=== PATIENT | female | born 1990 | race Caucasian/White ===

== ENCOUNTER 2018-04-28 19:01 | Emergency (ER) | payer SELFPAY ==
[~2018-04-28] VITALS: Ht 154.9 cm; Wt 62.6 kg
[~2018-04-28 19:01] MED LIST: ACHD5005 PO; AZIT-21 PO; BENZ56AE TP; CEPH500C PO; CITA20TA12 PO; CODE-54 PO; DCS100C PO; FRS325T; FRS325T PO; HYDR-700 PO; IBP600T1 PO; IBUP-1773 PO; NITR100C3 PO; OXYC-12 PO; PREN1TAB39
--- NOTE | 2018-04-28 19:46 | ED GU-Female ---
General Chief Complaint: -Female Stated Complaint: 6WEEKS, VAGINAL BLEEDING Nursing Triage Note: PT STATES SHE BELIEVES SHE IS 7 WEEKS . PT STATES SHE WOKE UP FROM [place] TODAY AND BEGAN HAVING SHARP PAINS IN HER BACK THAT RADIATED TO BOTH SIDES, THEN PT STARTED BLEEDING. PT STATES BLOOD WAS BRIGHT RED TURNING TO DARK BROWN. PT STATES SHE IS NOT SOAKING THROUGH PADS AND THE BLEEDING HAS SLOWED AT THIS TIME. PT IS 6 PARA 6. Nursing Sepsis Screen: No Definite Risk Source: patient Exam Limitations: no limitations History of Present Illness Date Seen by Provider: Apr 28, 2018 Time Seen by Provider: 19:15 Initial Comments PT ARRIVES VIA POV FROM HOME STATES SHE IS 6 WEEKS --LMP 03/15/18. NORMAL. NO CONTROL. HAD + HOME TEST YESTERDAY NO OB CARE --PLANS ON SEEING DR. ROBERTSON AGAIN, HAS NOT ATTEMPTED TO MAKE APPOINTMENT WITH HER PT STATES SHE WOKE UP AT 1300 TODAY AND "HAD SHARP PAINS IN MY LOW BACK AND SIDES" AND WHEN SHE WENT TO THE BATHROOM, HAD BRIGHT RED BLOOD ON TISSUE WITH WIPING, HAS NOT USED ANY PADS, AND HAS HAD A SPOT OF BROWN WITH WIPING SINCE THEN, AND NO BLEEDING OR SPOTTING NOW NO PAIN NOW, ONLY LASTED A COUPLE OF MINUTES NO PROBLEMS URINATING NO FEVER NO NAUSEA /VOMITING AB 0. Allergies and Home Medications Allergies Coded Allergies: Penicillins (Unverified Allergy, Unknown, 10/22/14) Sulfa (Sulfonamide Antibiotics) (Verified Allergy, Unknown, 07/29/09) Home Medications Citalopram Hydrobromide 20 Mg Tablet, 20 MG PO DAILY, (Reported) Ferrous Sulfate 325 Mg Tab, 325 MG PO DAILY@08 Prescribed by: KERRY FIGUEROA on 02/15/15 1022 Hydrocodone Bit/Acetaminophen 1 Each Tablet, 1-2 TAB PO Q4H PRN for PAIN Prescribed by: SHERINE ROBERTSON on 04/28/16 0842 Ibuprofen 600 Mg Tablet, 600 MG PO Q6H Prescribed by: SHERINE ROBERTSON on 04/28/16 0842 Patient Home Medication List Home Medication List Reviewed: Yes Review of Systems Constitutional: no symptoms reported Respiratory: no symptoms reported Cardiovascular: no symptoms reported Gastrointestinal: see HPI Genitourinary: see HPI : Yes LMP: March 15, 2018 Musculoskeletal: see HPI Skin: no symptoms reported Psychiatric/Neurological: No Symptoms Reported Endocrine: No Symptoms Reported Hematologic/Lymphatic: No Symptoms Reported Past Bgxdrkv-Mbjuxq-Xldmun Hx Patient Social History Alcohol Use: Occasionally Uses Recreational Drug Use: No (PT DENIES BUT TESTED + FOR THC ON 04/28/18) Smoking Status: Never a Smoker Recent Foreign Travel: No Contact w/Someone Who Travel: No Recent Infectious Disease Expo: No Recent Hopitalizations: No (previous 2006) Physical Abuse: No Sexual Abuse: No Immunizations Up To Date Tetanus Booster (TDap): Less than 5yrs PED Vaccines UTD: Yes Past Medical History Surgeries: Yes ( X 1) Section Respiratory: No Cardiac: No Neurological: No : Yes Last Menstrual Period: March 15, 2018 Hx : 7 Hx Para: 6 ( X 1 WITH CHILD #5 FOR BREECH, FOLLOWED BY WITH #6) Hx Total # of Abortions (Sp): 0 Reproductive Disorders: No Female Reproductive Disorders: Denies Sexually Transmitted Disease: No HIV/AIDS: No Genitourinary: No Gastrointestinal: No Musculoskeletal: No Endocrine: No HEENT: No Cancer: No Psychosocial: No Nursing Suicide Risk Score: 0 Integumentary: Yes Eczema Blood Disorders: No Adverse Reaction/Blood Tranf: No Family Medical History Arthritis 19 MOTHER Asthma G8 BROTHER Neoplasm 19 MOTHER (LIVER CANCER) No Family History of: AIDS Abdominal aortic aneurysm [place]'s disease Alcoholism Alzheimer's disease Aphasia Cancer of mouth Cardiovascular disease Cataracts Colon cancer Completed stroke Congenital disease Congenital heart disease Coronary thrombosis Cystic fibrosis Deafness or hearing loss Dementia Diabetes mellitus Drug abuse Dysphasia Fibrocystic disease of breast Gastroenteritis Glaucoma Headache disorder Hypercholesterolemia Hypertension Infertility Kidney disease Myocardial infarction Not obtainable due to adoption Osteoporosis Parkinson's disease Prostate cancer Psychosocial problem Respiratory disorder Seizure disorder Severe allergy Thyroid disease Tuberculosis Visual disorder Cancer Physical Exam Vital Signs Vital Signs - First Documented 04/28/18 19:05 Temp 97.6 Pulse 105 Resp 14 B/P (MAP) 116/69 (85) O2 Delivery Room Air Capillary Refill : Less Than 3 Seconds General Appearance: WD/WN, other (SITTING FINNISH-STYLE, TEXTING ON PHONE, WALKS UPRIGHT AND MOVES WITHOUT DIFFICULTY. DOES NOT APPEAR TO BE IN ANY DISCOMFORT) Cardiovascular: regular rate, rhythm, no murmur Respiratory: normal breath sounds, no respiratory distress, no accessory muscle use Gastrointestinal: normal bowel sounds, non tender, soft Back: normal inspection Extremities: normal inspection, no pedal edema, normal capillary refill Neurologic/Psychiatric: project lead II-XII nml as tested, no motor/sensory deficits, alert, normal mood/affect, oriented x 3 Skin: normal color, warm/dry, tattoos/piercings Progress/Results/Core Measures Suspected Sepsis Recent Fever Within 48 Hours: No Infection Criteria Present: None New/Unexplained Altered Menta: No Sepsis Screen: No Definite Risk SIRS Temperature:97.6 Pulse: 105 Respiratory Rate: 14 Laboratory Tests 04/28/18 19:47: White Blood Count 8.5 Blood Pressure 116 /69 Mean: 85 Laboratory Tests 04/28/18 19:47: Creatinine 0.64, Platelet Count 334 Results/Orders Lab Results Laboratory Tests Test 04/28/18 19:14 04/28/18 19:47 04/28/18 19:55 Range/Units Urine Color YELLOW YELLOW Urine Clarity CLEAR CLEAR Urine pH 6 7 5-9 Urine Specific [place] 1.015 L 1.010 L 1.016-1.022 Urine Protein 2+ H 1+ H NEGATIVE Urine Glucose (UA) NEGATIVE NEGATIVE NEGATIVE Urine Ketones NEGATIVE NEGATIVE NEGATIVE Urine Nitrite NEGATIVE NEGATIVE NEGATIVE Urine Bilirubin NEGATIVE NEGATIVE NEGATIVE Urine Urobilinogen NORMAL 1 NORMAL MG/DL Urine Leukocyte Esterase 1+ H 1+ H NEGATIVE Urine RBC (Auto) 4+ H 2+ H NEGATIVE Urine RBC 5-10 H 5-10 H /HPF Urine WBC 0-2 0-2 /HPF Urine Squamous Epithelial Cells 5-10 RARE /HPF Urine Crystals NONE NONE /LPF Urine Bacteria FEW H NONE /HPF Urine Casts NONE NONE /LPF Urine Mucus MODERATE H MODERATE H /LPF Urine Culture Indicated NO NO Urine Opiates Screen NEGATIVE NEGATIVE Urine Oxycodone Screen NEGATIVE NEGATIVE Urine Methadone Screen NEGATIVE NEGATIVE Urine Propoxyphene Screen NEGATIVE NEGATIVE Urine Barbiturates Screen NEGATIVE NEGATIVE Ur Tricyclic Antidepressants Screen NEGATIVE NEGATIVE Urine Phencyclidine Screen NEGATIVE NEGATIVE Urine Amphetamines Screen NEGATIVE NEGATIVE Urine Methamphetamines Screen NEGATIVE NEGATIVE Urine Benzodiazepines Screen NEGATIVE NEGATIVE Urine Cocaine Screen NEGATIVE NEGATIVE Urine Cannabinoids Screen POSITIVE H NEGATIVE White Blood Count 8.5 4.3-11.0 10^3/uL Red Blood Count 4.10 L 4.35-5.85 10^6/uL Hemoglobin 10.8 L 11.5-16.0 G/DL Hematocrit 33 L 35-52 % Mean Corpuscular Volume 79 L 80-99 FL Mean Corpuscular Hemoglobin 26 25-34 PG Mean Corpuscular Hemoglobin Concent 33 32-36 G/DL Red Cell Distribution Width 16.7 H 10.0-14.5 % Platelet Count 334 130-400 10^3/uL Mean Platelet Volume 9.5 7.4-10.4 FL Neutrophils (%) (Auto) 63 42-75 % Lymphocytes (%) (Auto) 30 12-44 % Monocytes (%) (Auto) 7 0-12 % Eosinophils (%) (Auto) 0 0-10 % Basophils (%) (Auto) 0 0-10 % Neutrophils # (Auto) 5.3 1.8-7.8 X 10^3 Lymphocytes # (Auto) 2.5 1.0-4.0 X 10^3 Monocytes # (Auto) 0.6 0.0-1.0 X 10^3 Eosinophils # (Auto) 0.0 0.0-0.3 10^3/uL Basophils # (Auto) 0.0 0.0-0.1 10^3/uL Sodium Level 138 135-145 MMOL/L Potassium Level 3.2 L 3.6-5.0 MMOL/L Chloride Level 107 98-107 MMOL/L Carbon Dioxide Level 23 21-32 MMOL/L Anion Gap 8 5-14 MMOL/L Blood Urea Nitrogen 9 7-18 MG/DL Creatinine 0.64 0.60-1.30 MG/DL Estimat Glomerular Filtration Rate > 60 BUN/Creatinine Ratio 14 Glucose Level 88 70-105 MG/DL Calcium Level 9.3 8.5-10.1 MG/DL Human Chorionic Gonadotropin, Quant [id number] H <5 MIU/ML My Orders Orders - ADY TEJADA DO Abo Rh Type (04/28/18 19:14) Basic Metabolic Panel (04/28/18 19:14) Cbc With Automated Diff (04/28/18 19:14) Hcg,Quantitative (04/28/18 19:14) Drug Screen Stat (Urine) (04/28/18 19:43) Ua Culture If Indicated (04/28/18 19:43) Us Ob Transvaginal [id number] (04/28/18 19:14) Ua Culture If Indicated (04/28/18 20:12) Vital Signs/I&O 04/28/18 19:05 Temp 97.6 Pulse 105 Resp 14 B/P (MAP) 116/69 (85) O2 Delivery Room Air Capillary Refill : Less Than 3 Seconds Blood Pressure Mean: 85 Progress Note : Progress Note NO PAIN OR BLEEDING OR ANY SYMPTOMS DURING ER STAY BLOOD TYPE A+ PT STATES SHE IS HERE FOR PROOF OF SO SHE CAN TAKE TO WIC/MEDICAID TO GET ASSISTANCE Diagnostic Imaging Comments ULTRASOUND--6 WEEK INTRAUTERINE GESTATIONAL SAC, NO POLE SEEN, 2 CM RIGHT OVARIAN CYST--PER TECH REPORT @ 1942, AND PER RADIOLOGIST REPORT @ @2004 Reviewed: Reviewed by Me Departure Impression Primary Impression: Threatened in first trimester Additional Impression: Urinary tract infection Disposition: HOME, SELF-CARE Condition: Stable Departure-Patient Inst. Referrals: SHERINE ROBERTSON DO (PCP/Family) Primary Care Physician Patient Instructions: How to Plan and Prepare for a Healthy , Threatened Miscarriage (DC), Urinary Tract Infection, Adult (DC) Add. Discharge Instructions: NOTHING IN VAGINA--NO TAMPONS, DOUCHING OR INTERCOURSE TYLENOL NEEDED FOR PAIN LOTS OF FLUIDS TAKE VITAMINS DAILY FOLLOW UP WITH OB DR. OF CHOICE SOON POSSIBLE RETURN TO ER IF WORSE All discharge instructions reviewed with patient and/or family. Voiced understanding. Scripts Nitrofurantoin Monohyd/M-Cryst (Macrobid 100 mg Capsule) 100 Mg Capsule 100 MG PO BID, #20 CAP Prov: ADY TEJADA DO 04/28/18 ADY TEJADA DO Apr 28, 2018 19:46
[2018-04-28 19:55] LABS: BASOPHILS % (AUTO) 0 % (0-10); EOSINOPHILS % (AUTO) 0 % (0-10); HEMATOCRIT 33 % (35-52); HEMOGLOBIN 10.8 G/DL (11.5-16.0); LYMPHOCYTES # (AUTO) 2.5 X 10^3 (1.0-4.0); LYMPHOCYTES % (AUTO) 30 % (12-44); MEAN CORPUSCULAR HEMOGLOBIN 26 PG (25-34); MEAN CORPUSCULAR HGB CONC 33 G/DL (32-36); MEAN CORPUSCULAR VOLUME 79 FL (80-99); MEAN PLATELET VOLUME 9.5 FL (7.4-10.4); MONOCYTES # (AUTO) 0.6 X 10^3 (0.0-1.0); MONOCYTES % (AUTO) 7 % (0-12); NEUTROPHILS # (AUTO) 5.3 X 10^3 (1.8-7.8); NEUTROPHILS % (AUTO) 63 % (42-75); PLATELET COUNT 334 10^3/uL (130-400); RED CELL DISTRIBUTION WIDTH 16.7 % (10.0-14.5); WHITE BLOOD COUNT 8.5 10^3/uL (4.3-11.0)
[2018-04-28 19:56] LABS: BILIRUBIN,URINE NEGATIVE (NEGATIVE); CLARITY,URINE CLEAR; COLOR,URINE YELLOW; GLUCOSE, URINE (UA) NEGATIVE (NEGATIVE); KETONES,URINE NEGATIVE (NEGATIVE); LEUKOCYTE ESTERASE ,URINE 1+ (NEGATIVE); NITRITE,URINE NEGATIVE (NEGATIVE); PH,URINE 6 (5-9); PROTEIN,URINE 2+ (NEGATIVE); UROBILINOGEN,URINE NORMAL (NORMAL)
--- NOTE | 2018-04-28 19:56 | Diagnostic Imaging Report ---
PROCEDURE: US OB transvaginal, [id number]. TECHNIQUE: Transabdominal and transvaginal grayscale, color Doppler and pulse duplex imaging of the pelvis was performed. INDICATION: Vaginal bleeding and pelvic pain. FINDINGS: There is a anechoic gestational sac present within the endometrial canal of the uterus. The gestational sac has a mean diameter of 1.23 cm which results in an estimated gestational age of 6 weeks and 0 days. A yolk sac is present; however, no embryo is identified at this time. Within the right ovary there is a thickwalled corpus luteum cyst present. Blood flow is present in the right ovary by color Doppler imaging. The left ovary is not seen. No free pelvic fluid. IMPRESSION: 1. Intrauterine gestational sac is present. Based on mean sac diameter, the estimated gestational age is 6 weeks and 0 days. Advise followup beta-hCG and repeat ultrasound as deemed clinically warranted. 2. Right ovarian corpus luteal cyst. Dictated by: Dictated on workstation # [id number]
[2018-04-28 20:01] LABS: AMPHETAMINE SCREEN, URINE NEGATIVE (NEGATIVE); BARBITURATE SCREEN URINE NEGATIVE (NEGATIVE); BENZODIAZEPINES SCREEN URINE NEGATIVE (NEGATIVE); CANNABINOID SCREEN, URINE POSITIVE (NEGATIVE); COCAINE SCREEN URINE NEGATIVE (NEGATIVE); METHADONE STAT NEGATIVE (NEGATIVE); METHAMPHETAMINE SCREEN URINE S NEGATIVE (NEGATIVE); OPIATE SCREEN URINE NEGATIVE (NEGATIVE); OXYCODONE STAT NEGATIVE (NEGATIVE); PROPOXYPHENE STAT NEGATIVE (NEGATIVE); TRICYCLIC ANTIDEPRESSANTS SCRE NEGATIVE (NEGATIVE)
[2018-04-28 20:06] LABS: BACTERIA,URINE FEW /HPF; WBC,URINE 0-2 /HPF
[2018-04-28 20:16] LABS: BUN/CREATININE RATIO 14; CALCIUM 9.3 MG/DL (8.5-10.1); CARBON DIOXIDE 23 MMOL/L (21-32); CHLORIDE 107 MMOL/L (98-107); CREATININE SERUM 0.64 MG/DL (0.60-1.30); GFR ESTIMATED > 60; GLUCOSE 88 MG/DL (70-105); POTASSIUM 3.2 MMOL/L (3.6-5.0); SODIUM 138 MMOL/L (135-145)
[2018-04-28 20:43] LABS: BILIRUBIN,URINE NEGATIVE (NEGATIVE); CLARITY,URINE CLEAR; COLOR,URINE YELLOW; GLUCOSE, URINE (UA) NEGATIVE (NEGATIVE); KETONES,URINE NEGATIVE (NEGATIVE); LEUKOCYTE ESTERASE ,URINE 1+ (NEGATIVE); NITRITE,URINE NEGATIVE (NEGATIVE); PH,URINE 7 (5-9); PROTEIN,URINE 1+ (NEGATIVE); UROBILINOGEN,URINE 1 MG/DL (NORMAL)
[2018-04-28 20:50] LABS: SQUAMOUS EPITHELIAL CELL,UR RARE /HPF; WBC,URINE 0-2 /HPF
[2018-04-28] MEDS ORDERED: NITR-65 PO (20:57)
[2018-04-28 21:08] VITALS: BP 106/76
== END 2018-04-28 21:08 | disposition home or self-care (01) ==
LOC: EDUNIT# 19:01 → ER 19:03
DX: O20.0 Threatened abortion (principal); O23.41 Unspecified infection of urinary tract in pregnancy, first trimester; O99.321 Drug use complicating pregnancy, first trimester; F12.90 Cannabis use, unspecified, uncomplicated; Z87.59 Personal history of other complications of pregnancy, childbirth and the puerperium; Z87.2 Personal history of diseases of the skin and subcutaneous tissue; Z88.0 Allergy status to penicillin; Z88.2 Allergy status to sulfonamides; Z3A.01 Less than 8 weeks gestation of pregnancy
CPT/HCPCS: 36415; 76817; 80048; 80306; 81000; 84702; 85025; 87088; 99283

== ENCOUNTER 2018-11-30 14:29 | Outpatient (CLI) | payer MEDICAID ==
[~2018-11-30] VITALS: Ht 154.9 cm; Wt 79.4 kg
[~2018-11-30 14:29] MED LIST changes: +NITR-65 PO
[2018-11-30 14:36] VITALS: BP 124/74
[2018-11-30] MEDS ORDERED: FERR325T18 PO (14:59)
[2018-11-30] MEDS ORDERED: PREN-8 PO (14:59)
== END 2018-11-30 14:50 | disposition home or self-care (01) ==
LOC: PREOP 14:29
PROVIDERS: ATTEND Obstetrics & Gynecology
DX: Z01.818 Encounter for other preprocedural examination (principal)
CPT/HCPCS: 87081

== ENCOUNTER 2018-12-09 04:32 | Inpatient (IN) | payer MEDICAID, OTHER ==
[~2018-12-09] VITALS: Ht 154.9 cm; Wt 84.4 kg
[~2018-12-09 04:32] MED LIST changes: +CITRIC ACID/SOB CIT (BICITRA) 30 ML UDC ONE; +FAMOTIDINE 20MG/2ML IV (PEPCID) ONE; +FERR325T18 PO; +METOCLOPRAMIDE INJ 10 MG/2 ML (REGLAN) ONE; +PREN-8 PO
--- NOTE | 2018-12-09 06:45 | NUR ---
CRUZITO CADENA presented to unit via ambulation from home, accompanied by family, with c/o PREVIOUS SECTION. CRUZITO CADENA weighed, gowned, voided, and to bed. EFHM and TOCO applied, VS taken. CRUZITO CADENA oriented to bed controls, call light, TV, heat, and A/C controls.
[2018-12-09] MEDS ORDERED: BUPIVACAINE SPINAL 0.75% (SENSORCAINE) 2 ML AMP ONE (07:09)
[2018-12-09] MEDS ORDERED: OXYTOCIN (PITOCIN) 10 UNIT/ML VIAL ONE (07:09)
[2018-12-09] MEDS ORDERED: ONDANSETRON 4 MG/2 ML (SDV) Z0FRAN ONE (07:09)
[2018-12-09] MEDS ORDERED: DEXAMETHASONE 10 MG/ML (DECADRON) 1 ML VIAL ONE (07:09)
[2018-12-09] MEDS ORDERED: fentaNYL INJECTION 100 MCG/2 ML AMP ONE (07:09)
[2018-12-09] MEDS ORDERED: ceFAZolin INJECTION 1,000 MG in NS (IVPB) 50 ML IV ONE (07:15)
[2018-12-09] MEDS ORDERED: ceFAZolin INJECTION 1,000 MG ONE (07:18)
--- NOTE | 2018-12-09 07:18 | Progress Note-Pre Operative ---
Pre-Operative Progress Note H&P Reviewed The H&P was reviewed, patient examined and no changes noted. Date Seen by Provider: Dec 09, 2018 Time Seen by Provider: 07:00 Date H&P Reviewed: Dec 09, 2018 Time H&P Reviewed: 07:00 Pre-Operative Diagnosis: previous cesaeran section SHERINE ROBERTSON DO Dec 09, 2018 07:18
[2018-12-09 07:20] VITALS: BP 127/94
[2018-12-09] MEDS: LACTATED RINGERS 1,000 ML IV PRN ×2 (07:20→07:55)
[2018-12-09 07:21] LABS: BASOPHILS % (AUTO) 0 % (0-10); EOSINOPHILS % (AUTO) 0 % (0-10); HEMATOCRIT 30 % (35-52); HEMOGLOBIN 9.6 G/DL (11.5-16.0); LYMPHOCYTES # (AUTO) 1.8 X 10^3 (1.0-4.0); LYMPHOCYTES % (AUTO) 22 % (12-44); MEAN CORPUSCULAR HEMOGLOBIN 25 PG (25-34); MEAN CORPUSCULAR HGB CONC 32 G/DL (32-36); MEAN CORPUSCULAR VOLUME 79 FL (80-99); MONOCYTES # (AUTO) 0.8 X 10^3 (0.0-1.0); MONOCYTES % (AUTO) 10 % (0-12); NEUTROPHILS # (AUTO) 5.3 X 10^3 (1.8-7.8); NEUTROPHILS % (AUTO) 67 % (42-75); PLATELET COUNT 240 10^3/uL (130-400); RED CELL DISTRIBUTION WIDTH 19.2 % (10.0-14.5)
[2018-12-09] MEDS ORDERED: CITRIC ACID/SOB CIT (BICITRA) 30 ML UDC PO ONE (07:30)
[2018-12-09] MEDS ORDERED: FAMOTIDINE 20MG/2ML IV (PEPCID) IV ONE (07:30)
[2018-12-09] MEDS ORDERED: METOCLOPRAMIDE INJ 10 MG/2 ML (REGLAN) IV ONE (07:30)
[2018-12-09] MEDS: WATER (STERILE) FOR INJECTION 10 ML ONE ×2 (07:43→07:46)
[2018-12-09] MEDS ORDERED: LIDOCAINE PF 2% 5 ML (XYLOCAINE) VIAL ONE (08:18)
[2018-12-09] MEDS ORDERED: BUPIVACAINE 0.5% 30 ML (SENSORCAINE) VIAL ONE (08:19)
[2018-12-09] MEDS: KETOROLAC 30 MG/ML VIAL IVP SCH ×3 (08:30→23:40)
[2018-12-09] MEDS ORDERED: KETOROLAC 30 MG/ML VIAL ONE (08:32)
[2018-12-09] MEDS ORDERED: D5 LR IV SOLUTION 1,000 ML IV SCH (08:53)
[2018-12-09] MEDS ORDERED: OXYTOCIN/NORMAL SALINE 500 ML IV SCH (08:53)
[2018-12-09] MEDS ORDERED: diphenhydrAMINE 50 MG/ML INJ (BENADRYL) IV PRN (09:00)
[2018-12-09] MEDS ORDERED: NALOXONE 0.4 MG/ML 1 ML (NARCAN) VIAL IV PRN (09:00)
[2018-12-09] MEDS ORDERED: ONDANSETRON 4 MG/2 ML (SDV) Z0FRAN IV PRN (09:00)
[2018-12-09] MEDS ORDERED: TETANUS,DIPTH,PERTUSS P/F (BOOSTRIX) 0.5 ML VIAL IM SCH (09:00)
[2018-12-09] MEDS ORDERED: MEASLES,MUMPS,RUBELLA 1 EA INJ SC SCH (09:00)
[2018-12-09] MEDS ORDERED: HYDROmorphone 2 MG/ML VIAL (DILAUDID) IV PRN (09:00)
--- NOTE | 2018-12-09 09:15 | Cesarean Section Operative ---
Procedure Procedure Note Pre-operative Diagnosis: Rosa Isela Michelle is a 28 /Para 04/4115 , Gestational Age 38 1/7 weeks, contractions advanced dilation, early labor Post-operative Diagnosis: same Procedure: Repeat low transverse section Physician: SHERINE ROBERTSON Vice President Of Brand Management: SORAIDA Estimated blood loss: 900 mL Disposition: stable Findings: Viable male infant, Apgars pending, weight pending, intact placenta, 3vc, normal appearing uterus, tubes, and ovaries. Indications:Rosa Isela Michelle is a 28 /Para 04/4115 ,Gestational Age 38 1/7 weeks, contractions advanced dilation, early labor, breech, nuchal and body cord, meconium Patient had moved to during due to social situation. There was a lapse in PNV but resumed the last few weeks. She has had an uncomplicated but with cs at 36 weeks due to ROM we were cautious. She was complaining of pressure and was having irregular contractions. SVE was 4/90/-1 vertex and intact. She was rescheduled for CS today. There was no anatomy scan during this due to lapse in PNC and late presentation. Do have a late dating scan. She is GBS negative. On arrival today there is a level I tracing but she is having irregular contractions. On evaluation, fetus is noted to be breech and was cephalic in the office yesterday. Procedure Details: The patient was seen in pre-op and the procedure was discussed with the patient in full, including the risks, benefits, and alternatives. All questions were answered. The patient was taken to the operating room and a time out was performed, verifying patient and procedure. After spinal anesthesia was placed by our anesthesia colleagues, the patient was placed in the dorsal supine with leftward tilt for uterine displacement.~ Her abdomen was then prepped and draped in the typical sterile fashion. A Pfannenstiel skin incision was made using a scalpel and carried down through the underlying fascia. The fascia was incised in the midline and tented up using Tracie clamps. On both the inferior and superior fascia side the rectus muscle was dissected off bluntly and sharply using Mak scissors. The peritoneum was identified and entered bluntly in the midline. This was then stretched laterally using manual strength. After entering the abdominal cavity and confirming lack of intraperitoneal adhesions, a large Riley retractor was placed and the lower uterine segment was visualized. Palpation confirms breech presentation. A bladder flap was created with the use of Metzenbaum scissors as the vesicouterine peritoneum was advanced over the lower uterine segment. .~ A scalpel was utilized to make a low transverse uterine incision. Amniotomy was performed with an Allis clamp with return of meconium stained (light green) fluid. The 's feet were floating and were grasped and brought to the level of the incision. The baby was delivered up to the shoulder and scapulae. There was a loose body cord wrapped twice and a nuchal cord. The baby was delivered through this. The head was delivered after rotation to allow the Sadpzpoh-Vlrdjqy-Avhb maneuver to deflex the head. Mouth and nares were suctioned with bulb suction. After the umbilical cord was clamped and cut, the was handed off to the pediatric staff. A sample of cord blood was then obtained. The baby was pink but did not cry. The placenta was delivered intact via uterine massage. The uterus was cleared of all clots and debris. The uterine incision was closed using 0 Vicryl in a running locked fashion. A second imbricated layer was placed using 0 Vicryl in a running fashion as well. The uterus was flexed forward and the posterior rectouterine space was inspected and cleared of all clots and debris.. The bilateral tubes and ovaries appeared normal. The abdominal gutters were cleared of all clots and debris. A final check of the uterine incision showed it to be hemostatic. The peritoneum was closed using 3-0 Vicryl in a running fashion. The fascia was closed with 0 Vicryl in a running fashion. The subcutaneous space was hemostatic, and irrigated. The subcutaneous space was closed with 3-0 Plain in several single interrupted stitches. The skin was then closed using 4-0 Monocryl in a running subcuticular fashion. The skin edges were reapproximated together and were hemostatic. A pressure dressing was applied. All sponge, lap and needle counts were correct at the end of the procedure per nursing. Vitals - Labs Labs Laboratory Tests 12/09/18 07:12: White Blood Count 8.0, Red Blood Count 3.82L, Hemoglobin 9.6L, Hematocrit 30L, Mean Corpuscular Volume 79L, Mean Corpuscular Hemoglobin 25, Mean Corpuscular Hemoglobin Concent 32, Red Cell Distribution Width 19.2H, Platelet Count 240, Mean Platelet Volume 10.0, Neutrophils (%) (Auto) 67, Lymphocytes (%) (Auto) 22 , Monocytes (%) (Auto) 10, Eosinophils (%) (Auto) 0, Basophils (%) (Auto) 0, Neutrophils # (Auto) 5.3, Lymphocytes # (Auto) 1.8, Monocytes # (Auto) 0.8, Eosinophils # (Auto) 0.0, Basophils # (Auto) 0.0 SHERINE ROBERTSON DO Dec 09, 2018 09:15
--- NOTE | 2018-12-09 09:45 | NUR ---
Pt taken to nsy from OB PACU via bed accompanied by RN. Pt settled in next to . Will continue to monitor. Addendum: 12/09/18 at 1815 by YAMILA KLINE RN Dr. Camacho notified of only 15ml urine output in recovery. Order to keep rosario in and 500ml fluid bolus.
--- NOTE | 2018-12-09 11:00 | NUR ---
Pt taken from [facility] to room 313 via bed. Pt oriented to room and call light. Room service explained. Pt verbalizes understanding. Denies questions or concerns.
[2018-12-09 11:10] VITALS: BP 111/75
--- NOTE | 2018-12-09 11:58 | NUR ---
Dr. Camacho notified of continued decreased output. Order for second 500ml fluid bolus.
[2018-12-09] MEDS ORDERED: LACTATED RINGERS 1,000 ML IV SCH (12:15)
[2018-12-09 13:58] VITALS: BP 123/75
[2018-12-09] MEDS ORDERED: CATHETER FLUSH 10 ML SYR IV SCH (14:00)
--- NOTE | 2018-12-09 14:45 | NUR ---
FFU/1, light rubra lochia noted, pericare performed. Urine output noted to be 40ml over last hour, will continue to monitor.
--- NOTE | 2018-12-09 15:30 | NUR ---
Dr Camacho notified of improved output, plan to take rosario out if next hour is good too.
--- NOTE | 2018-12-09 15:45 | NUR ---
Urine output continues to be improved. Pt sleeping at this time, will not wake. Will return to remove later.
[2018-12-09 19:15] VITALS: BP 134/82
--- NOTE | 2018-12-09 20:00 | NUR ---
PT UP TO BATHROOM FIRST TIME AFTER KAUR REMOVAL. VOIDED LESS THAN 25 CC. PERICARE COMPLETED. PT STATES SHE DOESN'T FEEL LIKE SHE IS HOLDING URINE. WILL ATTEMPT AGAIN SHORTLY.
[2018-12-09] MEDS: DOCUSATE SODIUM 100 MG (COLACE) CAP PO SCH (20:12)
[2018-12-10] VITALS (7 sets, daily range): BP systolic 114–130; BP diastolic 59–81
[2018-12-10] MEDS ORDERED: Oxycodone Hcl PO (02:20)
[2018-12-10] MEDS ORDERED: IBUP-844 PO (02:20)
[2018-12-10] MEDS ORDERED: ACET-2267 PO (02:20)
[2018-12-10] MEDS ORDERED: DOCU100C37 PO (02:20)
--- NOTE | 2018-12-10 02:22 | Discharge Inst-Women's Service ---
Discharge Inst-Women's Serv Depart Medication/Instructions New, Converted or Re-Newed RX: RX on Chart Final Diagnosis repeat section Consults/Follow Up Additional Follow Up: Yes (1 week and [address] Camacho) Activity Activity: Activity as Tolerated Driving Instructions: No Driving for 1 Week NO SMOKING: NO SMOKING Nothing Inside Vagina: No Douching, No Bug Tussle, No Tampons Diet Discharge Diet: No Restrictions Symptoms to Report to : Bleeding Excessive, Pain Increased, Fever Over 101 Degrees F, Vaginal Bleeding Increase, Vaginal Discharge Foul For Any Problems or Questions: Contact Your Physician Skin/Wound Care Infection Signs and Symptoms: Increased Redness, Foul Odor of Wound, Increased Drainage, Skin Itchy or Has a Rash, Increased Swelling, Temperature Above 101 F Operative Area Clean and Dry: Keep Incision Clean/Dry Stitches/[place]/Dermabond: Dermabond Bathing Instructions: SHERINE Lance DO Dec 10, 2018 02:22
[2018-12-10] MEDS ORDERED: MILK OF MAGNESIA 400 MG/5 ML 30 ML UDC PO PRN (05:00)
--- NOTE | 2018-12-10 05:00 | NUR ---
PT HAS BEEN RESTING WELL. NO S/S OF DISTRESS OR DISCOMFORT NOTED.
[2018-12-10 06:30] LABS: BASOPHILS % (AUTO) 0 % (0-10); EOSINOPHILS % (AUTO) 0 % (0-10); HEMATOCRIT 22 % (35-52); LYMPHOCYTES # (AUTO) 2.7 X 10^3 (1.0-4.0); LYMPHOCYTES % (AUTO) 21 % (12-44); MEAN CORPUSCULAR HEMOGLOBIN 26 PG (25-34); MEAN CORPUSCULAR HGB CONC 32 G/DL (32-36); MEAN CORPUSCULAR VOLUME 82 FL (80-99); MEAN PLATELET VOLUME 10.3 FL (7.4-10.4); MONOCYTES # (AUTO) 1.2 X 10^3 (0.0-1.0); MONOCYTES % (AUTO) 9 % (0-12); NEUTROPHILS # (AUTO) 8.9 X 10^3 (1.8-7.8); NEUTROPHILS % (AUTO) 69 % (42-75); PLATELET COUNT 204 10^3/uL (130-400); RED CELL DISTRIBUTION WIDTH 19.5 % (10.0-14.5); WHITE BLOOD COUNT 12.9 10^3/uL (4.3-11.0)
[2018-12-10 06:37] LABS: HEMOGLOBIN 6.8 G/DL (11.5-16.0)
--- NOTE | 2018-12-10 08:30 | NUR ---
here. new orders received.
--- NOTE | 2018-12-10 08:39 | Postpartum Progress Note ---
Note Note Day # 1 Subjective: Patient is without complaints. Ambulating, voiding. Tolerating a regular diet without nausea or vomiting. Normal lochia. Pain is well controlled with oral pain medications. Objective: Physical Exam: General - Alert and oriented, no apparent distress Abdomen - Soft, appropriately tender to palpation, non-distended, fundus firm at umbilicus Extremities - no edema, negative Eder's bilaterally Incision- c/d/i Assessment: POD 1 RLTCS Acute blood loss anemia- symptomatic Plan: Routine care. Encourage breast feeding. Encourage ambulation. Ferrous sulfate supplementation. 1 u PRBC ordered today. Plan for discharge tomorrow Vitals - Labs Vital Signs - I&O Vital Signs Date Time Temp Pulse Resp B/P (MAP) Pulse Ox O2 Delivery O2 Flow Rate FiO2 12/10/18 04:35 97.9 70 18 116/71 (86) 96 12/10/18 00:30 98.3 82 18 124/79 (94) 97 12/09/18 19:15 98.6 89 18 134/82 (99) 98 12/09/18 13:58 96.6 105 18 123/75 (91) 98 12/09/18 11:10 98.5 76 18 111/75 (87) 96 I & O 12/10/18 07:00 Intake Total 5011 ml Output Total 1600 ml Balance 3411 ml Labs Laboratory Tests 12/10/18 06:02: White Blood Count 12.9H, Red Blood Count 2.64L, Hemoglobin 6.8#*L, Hematocrit 22L, Mean Corpuscular Volume 82, Mean Corpuscular Hemoglobin 26, Mean Corpuscular Hemoglobin Concent 32, Red Cell Distribution Width 19.5H, Platelet Count 204, Mean Platelet Volume 10.3, Neutrophils (%) (Auto) 69, Lymphocytes (% ) (Auto) 21, Monocytes (%) (Auto) 9, Eosinophils (%) (Auto) 0, Basophils (%) ( Auto) 0, Neutrophils # (Auto) 8.9H, Lymphocytes # (Auto) 2.7, Monocytes # (Auto ) 1.2H, Eosinophils # (Auto) 0.0, Basophils # (Auto) 0.0 KERRY FIGUEROA DO Dec 10, 2018 08:39
--- NOTE | 2018-12-10 10:05 | NUR ---
initial shift assessment completed, see interventions for further. abd incision DEION with incision edges well approximated. no sx's of infection noted. pt reports feeling "tired" denies dizziness with ambulation @ time. POC reviewed, states understanding.
--- NOTE | 2018-12-10 10:19 | NUR ---
consent signed for blood transfusion, placed on chart.
[2018-12-10] MEDS ORDERED: NS IV 500 ML 500 ML ONE (10:20)
[2018-12-10] MEDS: ACETAMINOPHEN 500 MG TAB (TYLENOL) PO SCH ×2 (10:22→17:24)
[2018-12-10] MEDS: DOCUSATE SODIUM 100 MG (COLACE) CAP PO SCH ×2 (10:23→20:16)
--- NOTE | 2018-12-10 10:40 | NUR ---
#20g IV to Lt. hand x1 attempt by this RN. NS @ 50cc/hr infusing. pt tolerated well.
--- NOTE | 2018-12-10 10:51 | Anesthesia-Regional Post-Op ---
Regional Patient Condition Mental Status: Alert, Oriented x3 Circulation: Same as Pre-Op Headache: Absent Sensation: Full Recovery Motor Block: Absent Post Op Complications Complications None Follow Up Care/Instructions Patient Instructions None needed. Anesthesia/Patient Condition Patient is doing well, no complaints, stable vital signs, no apparent adverse anesthesia problems. No complications reported per nursing. MANJINDER ARANGO CRNA Dec 10, 2018 10:51
--- NOTE | 2018-12-10 11:02 | NUR ---
transfusion of PRBC's started per Dr. Ayoub's order. see transfusion administration record for further.
[2018-12-10] MEDS: IBUPROFEN 600 MG (MOTRIN) TAB PO SCH ×2 (13:21→20:16)
--- NOTE | 2018-12-10 14:29 | NUR ---
lab called with H&H results. 8.0 Hgb. 25.1 Hct.
--- NOTE | 2018-12-10 14:36 | NUR ---
was notified of H&H results. order received for repeat lab in a.m.
--- NOTE | 2018-12-10 17:24 | NUR ---
watching t.v. family @ side. Tylenol and Oxycodone given. see eMar for further.
--- NOTE | 2018-12-10 19:24 | NUR ---
report given to next shift.
--- NOTE | 2018-12-10 21:00 | NUR ---
pt sitting up in bed. assessment completed. pt denies any needs at this time. will continue to monitor.
[2018-12-11 00:21] VITALS: BP 108/71
[2018-12-11] MEDS: IBUPROFEN 600 MG (MOTRIN) TAB PO SCH ×2 (02:34→10:47)
[2018-12-11] MEDS: ACETAMINOPHEN 500 MG TAB (TYLENOL) PO SCH ×2 (02:34→10:47)
[2018-12-11 05:49] VITALS: BP 112/84
[2018-12-11 07:13] LABS: HEMOGLOBIN 8.7 G/DL (11.5-16.0)
[2018-12-11 10:47] VITALS: BP 135/81
[2018-12-11] MEDS: DOCUSATE SODIUM 100 MG (COLACE) CAP PO SCH (10:47)
--- NOTE | 2018-12-11 10:47 | NUR ---
initial shift assessment completed, see interventions for further. abd incision DEION with Dermabond intact @ incision site. incision edges well approximated, no sx's of infection noted. POC reviewed, states understanding.
--- NOTE | 2018-12-11 10:55 | NUR ---
here. dismissal orders received.
--- NOTE | 2018-12-11 10:58 | Postpartum Progress Note ---
Note Note Day # 2 Subjective: Patient is without complaints. Ambulating, voiding. Tolerating a regular diet without nausea or vomiting. Normal lochia. Pain is well controlled with oral pain medications. Objective: Physical Exam: General - Alert and oriented, no apparent distress Abdomen - Soft, appropriately tender to palpation, non-distended, fundus firm at umbilicus Extremities - no edema, negative Eder's bilaterally Incision- c/d/i Assessment: POD 2 RLTCS Plan: Routine care. Encourage breast feeding. Encourage ambulation. Ferrous sulfate supplementation. Plan for discharge today Vitals - Labs Vital Signs - I&O Vital Signs Date Time Temp Pulse Resp B/P (MAP) Pulse Ox O2 Delivery O2 Flow Rate FiO2 12/11/18 05:49 98.2 88 18 112/84 (93) 97 Room Air 12/11/18 00:21 97.9 83 18 108/71 (83) 97 Room Air 12/10/18 17:24 97.6 92 18 130/73 (92) 97 Room Air 12/10/18 13:15 99.0 83 14 114/64 97 Room Air 12/10/18 11:22 97.5 67 18 119/81 98 Room Air 12/10/18 11:22 97.5 67 18 119/81 98 Room Air 12/10/18 11:02 97.4 70 18 115/73 97 Room Air Labs Laboratory Tests 12/10/18 14:18: Hemoglobin 8.0L, Hematocrit 25L 12/11/18 06:34: Hemoglobin 8.7L, Hematocrit 28L KERRY FIGUEROA DO Dec 11, 2018 10:58
--- NOTE | 2018-12-11 12:20 | NUR ---
dismissal instructions given, see eMar for further. reviewed medications, administration schedules and dosages. instructed pt to schedule follow up appointments. signature page signed, placed on chart.
--- NOTE | 2018-12-11 12:25 | NUR ---
pt ambulated to private vehicle with family members @ side. pt stable with no sx's of distress noted.
== END 2018-12-11 12:25 | disposition home or self-care (01) | DRG 787 ==
LOC: LDRP 06:45
PROVIDERS: ADMIT Obstetrics & Gynecology; ATTEND Obstetrics & Gynecology
PROC: 10D00Z1 Extraction of Products of Conception, Low, Open Approach (ICD-10-PCS; principal; 2018-12-09 07:48)
DX: O34.211 Maternal care for low transverse scar from previous cesarean delivery (principal); O99.03 Anemia complicating the puerperium; D62 Acute posthemorrhagic anemia; O69.81X0 Labor and delivery complicated by cord around neck, without compression, not applicable or unspecified; O32.1XX0 Maternal care for breech presentation, not applicable or unspecified; O77.0 Labor and delivery complicated by meconium in amniotic fluid; O09.33 Supervision of pregnancy with insufficient antenatal care, third trimester; Z3A.38 38 weeks gestation of pregnancy; Z37.0 Single live birth
CPT/HCPCS: 36415; 85014; 85018; 85025; 86850; 86900; 86901; 86920; 94664